=== PATIENT | female | born 1970 | race Caucasian/White ===

== ENCOUNTER 2019-11-29 10:11 | Emergency (ER) | payer MEDICAID ==
[~2019-11-29] VITALS: Ht 160 cm; Wt 113.4 kg
[~2019-11-29 10:11] MED LIST: AMOXICILLIN500 MG PO; AUGMENTIN875TAB PO; BENZONATATE200 MG PO; CITALOPRAM40 MG PO; FIORICET 50-3001 CAP PO; FIORICET PO; FLONASE NASAL50 MCG; LISINOPRIL10 MG PO; NO HOME MEDS; OB COMPLET2 PO; OMEPRAZOLE20 MG PO; PREDNISONE20 MG PO; PROPRANOLOL HCL40 MG PO; SULFACET SOD10 % OS; TRAZODONE50 MG PO; TUBERSOL5 MG/0.1 M ID; ZITHROMAX500 MG PO; allo PO
[2019-11-29 11:07] LABS: HEMATOCRIT 39.2 % (37.0-47.0); IMMATURE GRANULOCYTES 0.3 % (0.0-5.0); MEAN CORPUSCULAR HGB 25.1 pG CALC (26.0-32.0); MEAN CORPUSCULAR HGB CONC 30.6 g/dL CAL (32.0-36.0); NEUT# 3.6 thou/uL (2.00-7.15); RED BLOOD COUNT 4.78 mill/uL (4.20-5.60); RED CELL DISTRI WIDTH 15.5 % (11.5-15.5)
[2019-11-29 11:19] LABS: ANION GAP 12 (6-22 (CALC)); BUN 9 mg/dL (7-17); BUN/CREATININE RATIO 20 (12-20 (CALC)); CARBON DIOXIDE 23 mmol/l (22-30); CHLORIDE 102 mmol/l (95-108); CREATININE 0.4 mg/dL (0.5-1.0); GFR > 60 ML/MIN (>=60 (CALC)); GFR FOR AFR.AMER. > 60 ML/MIN (>=60 (CALC)); POTASSIUM 3.9 mmol/l (3.5-5.1); SODIUM 134 mmol/l (137-146)
[2019-11-29 11:29] LABS: HCG SERUM/URINE (NEG/POS) NEGATIVE (NEGATIVE)
[2019-11-29 12:28] VITALS: BP 157/82
== END 2019-11-29 12:42 | disposition home or self-care (01) ==
LOC: ED 10:11
PROVIDERS: Family Medicine
DX: U07.1 COVID-19 (principal); R07.9 Chest pain, unspecified; E11.9 Type 2 diabetes mellitus without complications

== ENCOUNTER 2020-04-06 08:05 | Emergency (ER) | payer MEDICAID ==
[~2020-04-06] VITALS: Ht 160 cm; Wt 112.8 kg
[2020-04-06 08:10] VITALS: BP 176/80
[2020-04-06] MEDS ORDERED: OMEPRAZOLE DR20 MG PO (08:42)
[2020-04-06] MEDS ORDERED: LISINOPRIL20 M1 PO (08:42)
[2020-04-06] MEDS ORDERED: METFORMIN HCL500 M1 PO (08:43)
[2020-04-06 08:44] LABS: HEMATOCRIT 38.7 % (37.0-47.0); HEMOGLOBIN 11.6 g/dl (12.0-16.0); IMMATURE GRANULOCYTES 0.4 % (0.0-5.0); MEAN CELL VOLUME 85.2 fL CALC (80.0-100.0); MEAN CORPUSCULAR HGB 25.6 pG CALC (26.0-32.0); NEUT# 7.26 thou/uL (2.00-7.15); RED BLOOD COUNT 4.54 mill/uL (4.20-5.60); RED CELL DISTRI WIDTH 15.1 % (11.5-15.5)
[2020-04-06 09:03] LABS: ALBUMIN 4.2 g/dL (3.2-5.0); ALKALINE PHOSPHATASE 96 u/l (38-126); AMYLASE 49 u/l (30-110); ANION GAP 12 (6-22 (CALC)); BUN 8 mg/dL (7-17); BUN/CREATININE RATIO 16 (12-20 (CALC)); CARBON DIOXIDE 25 mmol/l (22-30); CHLORIDE 105 mmol/l (95-108); CREATININE 0.5 mg/dL (0.5-1.0); GFR > 60 ML/MIN (>=60 (CALC)); GFR FOR AFR.AMER. > 60 ML/MIN (>=60 (CALC)); LIPASE 47 u/l (23-300); POTASSIUM 4.6 mmol/l (3.5-5.1); SGOT/AST 78 u/l (14-36); SODIUM 138 mmol/l (137-146); TOTAL PROTEIN 7.6 g/dL (6.3-8.2)
[2020-04-06 09:04] LABS: BILIRUBIN, TOTAL 0.6 mg/dL (0.0-1.4)
[2020-04-06 09:05] LABS: URINE BILIRUBIN - DIPSTICK NEGATIVE (NEGATIVE); URINE BLOOD DIPSTICK NEGATIVE (NEGATIVE); URINE COLOR YELLOW; URINE GLUCOSE - DIPSTICK NEGATIVE (NEGATIVE); URINE KETONE NEGATIVE (NEGATIVE); URINE LEUK ESTERASE NEGATIVE (NEGATIVE); URINE NITRITE - DIPSTICK NEGATIVE (Negative); URINE PH 6.5 (4.5-8.0); URINE PROTEIN - DIPSTICK NEGATIVE (NEG-TRACE); URINE UROBILINOGEN - DIPSTICK 0.2 E.U./dL (0.2)
[2020-04-06 09:15] LABS: MYOGLOBIN 26 ng/mL (0 - 62)
[2020-04-06] MEDS ORDERED: PREVACID30 M3 PO (10:25)
[2020-04-06] MEDS ORDERED: ULTRAM50 M1 PO (10:25)
== END 2020-04-06 11:15 | disposition home or self-care (01) ==
LOC: ED 08:05
PROVIDERS: Emergency Medicine
DX: K29.70 Gastritis, unspecified, without bleeding (principal); R16.2 Hepatomegaly with splenomegaly, not elsewhere classified; E11.9 Type 2 diabetes mellitus without complications; I10 Essential (primary) hypertension; T50.916A Underdosing of multiple unspecified drugs, medicaments and biological substances, initial encounter; Z91.128 Patient's intentional underdosing of medication regimen for other reason; Z79.84 Long term (current) use of oral hypoglycemic drugs
CPT/HCPCS: Q9967; S0164